=== PATIENT | female | born 1970 | race Caucasian/White ===

== ENCOUNTER 2018-09-17 11:39 | Inpatient (IN) ==
[~2018-09-17 11:39] MED LIST: cefOXitin 1,000 MG, Sodium Chloride IRRigation 1,000 ML IR ONE
[2018-09-17] MEDS ORDERED: Albuterol 2.5 MG/3 ML NEBULIZER IH ONE (12:18)
[2018-09-17] MEDS ORDERED: cefOXitin 2,000 MG in Water for inj. (sterile) 20 ML 20 ML IVP ONE (12:18)
[2018-09-17] MEDS ORDERED: Acetaminophen IV 1,000 MG/100 ML INFUS..BTL IVPB ONE (12:19)
[2018-09-17] MEDS ORDERED: Famotidine 20 MG/2 ML VIAL IVP ONE (12:19)
[2018-09-17] MEDS ORDERED: *HR* Heparin 5,000 UNIT/ML VIAL SQ ONE (12:20)
[2018-09-17] MEDS ORDERED: Ringers Solution, Lactated 1,000 ML IVC SCH (12:30)
[2018-09-17] MEDS ORDERED: *HR* Midazolam HCl 2 MG/2 ML VIAL ONE (12:54)
[2018-09-17] MEDS ORDERED: *HR* FentaNYL (PF) 100 MCG/2 ML VIAL ONE ×7 (12:54→20:09)
[2018-09-17] MEDS ORDERED: Lidocaine -MPF 2% 2 ML VIAL ONE (12:56)
[2018-09-17] MEDS ORDERED: *HR* Rocuronium Bromide 50 MG/5 ML VIAL ONE ×3 (12:56→18:38)
[2018-09-17] MEDS ORDERED: *HR* Propofol 200 MG/20 ML VIAL IVP ONE (12:57)
--- NOTE | 2018-09-17 13:07 | Anesthesia Evaluation PreOp ---
Date of Encounter: 09/17/18 Time of Encounter: 13:04 - Past History Planned Operation: abdominal perineal resection Cardiac History: HTN Pulmonary History: Former smoker (quit 2007), DELIA Dx (nsire of CPAP setting) PELLETIZER History: Other (anxiety depression) Other Medical History: Thyroid (hypo), GERD, Other (rectal and sigmoid carcinoma, obesity BMI 52) Anesthesia History: No Prior Anesthetic Complications, Past Anesthesia (c section, left knee scope, right shoulder RCR) : No Alcohol Use: none Drug use: none Medications and Allergies OxyCODONE Immed Rel [Roxicodone 10 MG] 20 - 30 mg PO Q3H PRN 10 Days #240 tab 09/14/18 [Rx] rOPINIRole [Requip] 1 mg PO HS 09/17/18 [History] Allergy/AdvReac Type Severity Reaction Status Date / Time morphine Allergy Mild Itching Verified 06/06/18 09:56 Erythromycin Base AdvReac Cramping Verified 06/06/18 09:04 of the Muscles Sulfa (Sulfonamide AdvReac Cramping Verified 06/06/18 09:04 Antibiotics) of the Muscles - Meds/Allergy Pre-op Review Medications Reviewed: Yes Allergies Reviewed: Yes Beta Blockers on Current Med List: No Anesthesia Results - Labs Laboratory Tests 08/22/18 08/22/18 09/11/18 09:24 09:24 14:24 WBC 6.3 Hgb 10.8 L Hct 34.8 L Plt Count 247 PT 11.6 INR 1.0 APTT 35.0 Sodium 141 Potassium 4.0 Chloride 104 Carbon Dioxide 29 BUN 10 Creatinine 0.84 - Imaging EKG: report reviewed (SINUS RHYTHM MODERATE INTRAVENTRICULAR CONDUCTION DELAY), image reviewed Anesthesia Exam Vital Signs/O2 Sat/Glucose, Most Recent Temp Pulse Resp BP Pulse Ox 98.5 F 81 18 143/85 94 09/17/18 12:27 09/17/18 12:27 09/17/18 12:27 09/17/18 12:27 09/17/18 12:27 Height: 1.63 m Weight: 138 kg NPO (# of Hours): > 8 hr - HEENT Pupil (Motor): Pupils equal Mallampati: II Teeth: Missing Oral Opening: Greater than 3 - PELLETIZER LOC: Oriented PELLETIZER Motor: Normal RUE, Normal LUE, Normal RLE, Normal LLE, Normal Face PELLETIZER Sensory: Normal: RUE, LUE, RLE, LLE, Face - Cardiac Rhythm: Regular Murmur: None - Pulmonary Breath Sounds: bilateral Clear Respiratory Effort: Symmetrical Anesthesia Assess/Plan ASA Score: 3 Level of consciousness: Cooperative, Oriented Anesthetic Plan: General, Epidural Monitoring Plan: Standard Monitors Recovery Plan: PACU
[2018-09-17] MEDS ORDERED: SODIUM CHLORIDE IR ONE (13:15)
[2018-09-17] MEDS ORDERED: SODIUM BICARBONATE IR ONE (13:15)
[2018-09-17] MEDS ORDERED: LIDOCAINE IR ONE (13:15)
[2018-09-17] MEDS ORDERED: Neostigmine Methylsulfate 3 MG/3 ML SYRINGE ONE (13:18)
[2018-09-17] MEDS ORDERED: Ketorolac 30 MG/ML VIAL ONE ×2 (13:19→17:26)
--- NOTE | 2018-09-17 13:39 | History & Physical Report ---
Date of Encounter: 09/17/18 Time of Encounter: 13:38 24 Hour HP Update - Instructions Instructions: If the History and Physical is less than 30 days old and was completed prior to A.M. admission and or procedure and has NOT been updated on calendar day of procedure please complete this update prior to performing procedure. - Update Patient reports changes in Medical Condition: No Changes in examination, assessment, or condition: No Changes in Medication: No Surgery Remains Indicated: Yes Consent for Planned Operative Procedure(s) Verified: Yes - Pre-Operative Checklist Prophylactic Antibiotic Ordered: Yes Home Medications Include Beta Henrique: No Is VTE Prophylaxis Indicated?: Yes
[2018-09-17] MEDS ORDERED: Povidone-Iodine 28.4 GM TUBE TP ONE (13:41)
[2018-09-17] MEDS ORDERED: Bupivacaine-MPF 0.25% 10 ML VIAL ONE ×2 (13:44→15:10)
[2018-09-17] MEDS ORDERED: Lidocaine/EPI 1:200k 1% PF 10 ML VIAL ONE (13:44)
[2018-09-17] MEDS ORDERED: KETAMINE HCL 50 MG/ML SYRINGE IV ONE ×2 (13:47→16:40)
[2018-09-17] MEDS ORDERED: Ondansetron 4 MG/2 ML VIAL IVP PRN ×2 (14:17→21:47)
[2018-09-17] MEDS ORDERED: 0.9 % Sodium Chloride 500 ML IVC PRN (14:17)
[2018-09-17] MEDS ORDERED: Naloxone 0.4 MG/ML INJ IVP PRN (14:17)
[2018-09-17] MEDS ORDERED: *HR* HYDROmorphone (PF) 1 MG/ML SYRINGE IVP PRN (14:17)
[2018-09-17] MEDS ORDERED: Bupivacaine-MPF 0.5% 25 ML, FentaNYL (PF) 250 MCG in 0.9 % Sodium Chloride 80 ML EP SCH (14:30)
[2018-09-17] MEDS ORDERED: Esmolol 100 MG/10 ML VIAL IVP ONE (15:07)
--- NOTE | 2018-09-17 15:59 | Anesthesia Procedures ---
Date of Encounter: 09/17/18 Time of Encounter: 14:05 Procedures: Anesthesia - Epidural/Spinal Patient ID/Chart reviewed: Yes Patient examined: Yes Consent Obtained: Yes Supplemental Oxygen: Nasal Cannula Supplemental Oxygen Rate (L/min): 2 Sedation: Versed (mg): 2 Sedation: Fentanyl (mcg): 150 Site Prep: Aseptic Technique, Sterile prep and drape, 0.5% Chlorhexidine/Alcohol Patient position: upright Local Anesthetic: Lidocaine 1% Amount of Local Anesthetic used: 2 Touhy Needle Gauge: 18 Touhy Needle Depth (cm): 5 Catheter Depth at Skin (cm): 13 Test Dose (1.5% Lido + Epi): Volume given (mls): 4 (1% lido with epi 1:200,000) Test Dose Result: Negative (Vital signs unchanged, remain stable) Loading Dose: 0.25% Marcaine (mls): 10 Loading Dose: Fentanyl (mcg): 50 Loading Dose Administered: Thru Catheter Catheter Secured in Place: Tegaderm, Tape Interspace Used: Other (T8-T9) Loss of Resistance (HALEIGH): Yes Blood: No CSF: No Paresthesia: No Vitals + FHT's: Vital Signs/O2 Sat/Glucose, Most Recent Temp Pulse Resp BP Pulse Ox 98.5 F 90 18 143/95 95 09/17/18 12:27 09/17/18 13:54 09/17/18 13:54 09/17/18 13:54 09/17/18 13:54
[2018-09-17] MEDS: Epidural Premix (fent/bupiv) 110 ML EP SCH ×2 (16:30→19:55)
[2018-09-17] MEDS ORDERED: *HR* Magnesium Sulfate 1 GM/2 ML VIAL ONE (16:34)
[2018-09-17] MEDS ORDERED: SUGAMMADEX SODIUM 500 MG/5 ML VIAL IV ONE (16:40)
[2018-09-17] MEDS ORDERED: Albumin Human 5% 25.0 GM/500 ML VIAL ONE (17:17)
[2018-09-17] MEDS ORDERED: Ondansetron 4 MG/2 ML VIAL ONE (17:26)
[2018-09-17] MEDS ORDERED: Acetaminophen IV 1,000 MG/100 ML INFUS..BTL IVPB SCH (18:00)
[2018-09-17] MEDS ORDERED: Ketorolac 15 MG/ML VIAL IVP SCH (18:00)
[2018-09-17] MEDS ORDERED: CefOXitin 2,000 MG VIAL ONE (18:08)
[2018-09-17] MEDS ORDERED: *HR* PHENYLEPHRINE 1,000 MCG/10 ML SYRINGE IVP ONE (18:34)
--- NOTE | 2018-09-17 18:44 | Operative Note ---
Date of procedure: 09/17/18 Pre-op diagnosis: Rectal cancer Post-op diagnosis: same Procedure: Abdominal perineal resection Anesthesia: GETA Surgeon: Arun Lemus Co-Surgeon: Kathie Will Was there an vet assistant present: Yes Authorization Nurse: Lisette Newton Estimated blood loss (cc): 250 Specimen: Abdominal perineal resection including anus and total mesorectal resection Condition: stable Disposition: PACU Procedure in Detail: After informed consent the patients taking major operative suite placed supine position given adequate general endotracheal anesthesia. Placed in lithotomy position. Abdomen and perineum prepped and draped in sterile fashion utilizing ChloraPrep on the abdomen and Betadine on the perineum. Dr. Will and Dr. Lemus were co-surgeons. Both surgeons were present throughout the entire procedure. Midline incision was made and the abdomen was entered. The Bookwalter retractor was placed in the small bowel was retracted out of the pelvis. The procedure was made very difficult by the body mass index of 52.. The sigmoid colon was completely mobilized. The sigmoid descending colon junction was divided with SHASHANK. Peritoneum on the right and left side of the pelvis was divided. The vascular pedicle for the rectum was divided. Once this was done slow meticulous dissection of the middle and inferior hemorrhoidals was carried out keeping the dissection at the lateral sidewalls and the hollow of the sacrum. The peritoneum between the rectum in the vagina was divided. Careful dissection posterior to the muscular wall of the of the vagina was made. This allowed careful dissection circumferentially all the way to the levator muscles. Dissection was complicated by morbid obesity. Once complete mobilization of the rectal segment was made with dissection from the pelvic sidewalls all the way to alleviate years attention was then turned to the perineal dissection. An ellipse of tissue from just posterior to the vagina to just anterior of the coccyx was divided. The skin and superficial musculature was divided. Anterior pelvic diaphragm was divided. Careful dissection was carried out on the right and left sides and posterior of the rectum. The puborectalis muscle was divided anteriorly and posteriorly and the coccyx was identified. The tissues anterior to the coccyx as it extended onto the sacrum was divided. This helped isolate the rectum on the posterior vagina wall. There was palpable tumor remaining in this area. Very careful dissection was maintained along the vagina in order to maintain resection integrity. This meant that the vagina was entered posteriorl y and an extended posterior vaginal wall was taken with the specimen. Once the dissection was completed the specimen was delivered through the perineum. Hemostasis was gained with hemostatic ligatures and electrocautery. Posterior vaginal wall was closed with interrupted Vicryl. A Arvind drain was placed in the pelvis. The pelvic diaphragm musculature was reapproximated when possible. Central portion of the resection was not able to be reapproximated. Subcutaneous tissue and ischiorectal fossa tissues were closed in multiple layers all the way to the skin. The drain was secured with silk. Dr. Will then created the colostomy and irrigated the abdomen with copious amounts of antibiotic containing solution. The midline was closed with looped 0 PDS and the skin with skin clips. The patient tolerated procedure very well. Blood loss estimated at 250 mL
[2018-09-17] MEDS: *HR* FentaNYL (PF) 100 MCG/2 ML VIAL IVP PRN ×10 (20:11→20:56)
--- NOTE | 2018-09-17 20:17 | Operative Note ---
Date of procedure: 09/17/18 Pre-op diagnosis: Rectal cancer Post-op diagnosis: same Procedure: Abdominoperoneal resection, end colostomy, takedown splenic flexure, repair posterior vaginal wall Complications: none immediate Anesthesia: JOSEPH Surgeon: Kathie Will Co-Surgeon: Arun Lemus Was there an safety assistant present: Yes Renal Nurse: Lisette Newton Estimated blood loss (cc): 600 Urine output (cc): 150 Specimen: anus/rectum/sigmoid colon Condition: stable Disposition: PACU Procedure in Detail: Patient was brought into the operating suite and placed supine on the operating table. Sign in was performed and everyone was in agreement. Anesthesia was induced and patient was endotracheally intubated by anesthesia without incident. Her legs were placed in yellowfin stirrups. Holden catheter was placed by the circulating nurse. NG tube was placed by the anesthesia provider. The perineum as well as the abdomen were prepped and draped in the usual sterile fashion. Timeout was performed again everyone was in agreement. Dr. Lemus was the co- surgeon for the majority of the procedure due to the complex and difficult nature of not only the abdominal surgical component but the perineum component as well which requires 2 surgeons, compounded by the fact the patients BMI is 52. Midline incision through the skin into the subcutaneous tissue was made several centimeters below the xiphoid around the right lateral aspect of the umbilicus down to the suprapubic area with a 10 blade. We dissected through the subcutaneous tissue to the anterior abdominal wall fascia with the Bovie. The fascia was split with the Bovie Reena's are placed on either side of the fascia for retraction and the abdomen was entered with the Bovie. Bookwalter was placed for exposure and retraction pepper. The small bowel was packed up into the right upper quadrant with a wet towel and the malleable retractor. The sigmoid colon was located in taken off the left lateral abdominal wall at the white line of Toldt with the Bovie and gentle blunt dissection. The left ureter was located and kept out of harm's way throughout the remainder of the procedure. Once the sigmoid was completely mobilized off the abdominal wall area of the mesentery beneath the colon was chosen for transection was opened up with the Bovie and the colon was transected the descending colon/sigmoid junction with a linear SHASHANK-75 stapler blue load. The mesentery along the right lateral and left lateral peritoneum was scored with the Bovie. The sigmoid mesentery was taken down and a proximal to distal direction towards the rectum with the impact LigaSure, coming across the inferior mesenteric artery and vein. Continued dissection with the impact LigaSure along the posterior aspect of the sacrum was carefully performed. A total knee so mesorectal dissection was carried out first posteriorly then along each lateral aspect of the rectum with gentle blunt dissection and the impact ligasure ligating the superior rectal artery and the middle rectal arteries. Once dissection was carried down to levators an opening in the peritoneum between the rectum and the cervix was done with the bovie and dissection with the bovie and gentle blunt dissection between the posterior vagina and anterior rectal wall was done until it became too difficult. Attention was then turned to the perineal component of the case. The anus was sewn closed with a 2-0 prolene running locked stitch. An elliptical incision through the skin into the subcutaneous tissue around the anus was done with a 15 blade, first starting 1-1/2-2 cm above the anterior anus proceeding posteriorly to the tip of the coccyx. Dissection through the subcutaneous fat was done circumferentially around the anus to the levators, carefully ligating the inferior hemorrhoidal arteries with the Bovie. The dissection was carried through through the levators as well as the anterior aspect of the puborectalis muscle with the Bovie. Continued dissection and the mesorectal plane was carried through the fat with the Bovie until the perineal dissection met with the pelvic dissection bilaterally and posteriorly. The anterior dissection of the mid to distal rectum was complicated by previous radiation a fact where the anterior aspect of the rectum was densely adherent to the posterior vaginal wall. Due to the dense nature of the tissue in this area and concern for residual tumor that had potentially gone through the anterior rectal wall to the vagina approximately a centimeter and a half of posterior vaginal wall was removed with the specimen. This completely freed up the anus, rectum, sigmoid which was then pulled out the perineal dissection. The posterior wall of the vagina was closed with 2-0 Vicryl [id number] stitches. A 19-Ukrainian Arvind drain was placed into the pelvis coming out of the right perineum skin and was secured to the skin with a 2-0 silk stitch. The pelvic fat as well as pelvic diaphragm musculature was reapproximated with 2-0 Vicryl interrupted stitches. The subcutaneous tissue was reapproximated with 2-0 Vicryl interrupted stitches and the skin was closed with mary. Dr. Lemus then left the operating theater. The abdomen was copiously irrigated with sterile saline. The descending colon was taken off the left abdominal wall the white line of Toldt with the Bovie proceeding proximally freeing the splenic flexure of the colon. There was adequate mobilization of the distal transverse and descending colon to create a colostomy. The small bowel was returned to the abdominal cavity and the omentum was draped down around the small bowel and distal end of the omentum was placed into the pelvis behind the vagina in an attempt to exclude the small bowel from the pelvis. Reena's are placed on the left side of the abdominal wall fascia using a 15 blade a circular incision through the skin into the subcutaneous tissue approximated 2 cm in size was made overlying the proximal lateral rectus muscle. Dissection through the subcutaneous fat to the anterior abdominal wall rectus fascia was made with a 15 blade. A cruciate incision was made through the anterior rectus fascia with the Bovie. Lisa was used to split the rectus muscle in the direction of fibers and the posterior rectus fascia was opened bluntly. The opening in the rectus fascia accommodated 2 fingers breast. The distal descending colon was pulled up through this opening in the rectus muscle. [place]'s are placed on either side of the fascia for retraction and the abdominal wall was closed with 2 separate #1 non-looped PDS running stitches meeting in the middle. The subcutaneous tissue was copiously irrigated with sterile saline. The subcutaneous tissue was reapproximated with 3-0 Vicryl interrupted stitches and the skin was closed with mary. The stapled off end of the descending colon was transected with curved heavy Metzenbaum scissors and the cut end of the colon bled appropriately. The colostomy was then fashioned with full thickness colon wall interrupted stitches securing the colon to the subcutaneous tissue circumferentially. A large colostomy appliance was placed over the newly created colostomy. 4 x 4 gauze and Medipore tape were applied to the midline incision. 4 x 4 gauze and Medipore tape were applied to the perineum incision as well as a drain sponge to the Arvind drain. All lap and instrument counts were correct at the end of the case. The patient tolerated the procedure well. She was awoken in the operating suite and extubated by anesthesia without incident. The OG tube was removed as well. The Holden catheter remained with the patient. She was taken to PACU in stable condition.
[2018-09-17] MEDS: *HR* HYDROmorphone (PF) 1 MG/ML SYRINGE IVP PRN ×4 (21:01→21:16)
--- NOTE | 2018-09-17 21:19 | Anesthesia Evaluation Post Op ---
Date of Encounter: 09/17/18 Time of Encounter: 21:18 - Vital Signs Vital Signs: Last Vital Signs Temp 97.6 F 09/17/18 20:55 Pulse 69 09/17/18 21:15 Resp 14 09/17/18 21:15 BP 115/67 09/17/18 21:15 Pulse Ox 99 09/17/18 21:15 - Lungs Lungs: Clear Ascult./Percussion - Airway Airway: Non-obstructed - Cardiovascular Regular Rate - Mental Status Mental Status: Alert & Oriented, Answers Appropriately - Pain Pain Scale: 8 - Nausea Vomiting Nausea Vomiting: Not Present - Hydration Hydration: NPO, Holden catheter - Discharge PostOp Status: Transfer Patient to floor
[2018-09-17] MEDS ORDERED: *HR* Promethazine 25 MG/ML VIAL IVP PRN (21:47)
[2018-09-18] MEDS: 0.9 % Sodium Chloride 1,000 ML IVC SCH ×3 (01:06→15:43)
[2018-09-18] MEDS: Acetaminophen IV 1,000 MG/100 ML INFUS..BTL IVPB SCH ×4 (01:07→18:03)
[2018-09-18] MEDS: Piperacillin/Tazobactam 3.375 GM in 0.9 % Sodium Chloride Mini Bag 100 ML IVPB SCH ×4 (01:35→23:56)
[2018-09-18] MEDS: rOPINIRole 1 MG TABLET PO SCH ×2 (03:07→21:20)
[2018-09-18] MEDS: *HR* HYDROmorphone 20 MG/20 ML PCA IVC PRN ×2 (04:40→21:46)
[2018-09-18] MEDS: *HR* Heparin 5,000 UNIT/ML VIAL SQ SCH ×2 (05:33→18:03)
[2018-09-18 06:40] LABS: Basophils % 0.1 %; Eosinophils % 0.1 %; Hematocrit 26.9 % (35.3-44.9); Hemoglobin 8.3 g/dL (11.5-15.4); Immature Granulocytes % 0.3 % (0-4); Lymphocytes # 0.4 K/mcL (0.6-4.6); Lymphocytes % 4.8 %; Mean Corpuscular HGB Conc 30.9 g/dL (31.6-35.5); Mean Corpuscular Hemoglobin 26.2 pg (28.0-33.3); Mean Corpuscular Volume 84.9 fL (83.0-100.0); Mean Platelet Volume 9.9 fL (9.4-12.4); Monocytes # 0.4 K/mcL (0.0-1.3); Monocytes % 4.8 %; Neutrophils # 7.1 K/mcL (1.6-8.9); Platelet Count 230 K/mcL (140-400); Red Blood Count 3.17 M/mcL (3.82-4.97); Red Cell Distribution Width 15.9 % (11.5-14.5); Segmented Neutrophils % 89.9 %
[2018-09-18 06:58] LABS: BUN/Creatinine Ratio 14 (6-26); Blood Urea Nitrogen 12 mg/dL (6-20); Carbon Dioxide 25 mEq/L (23-29); Chloride 107 mEq/L (98-107); Glucose 151 mg/dL (70-105); Magnesium 2.1 mg/dL (1.6-2.6); Osmolality,Calculated 293 (280-300); Phosphorous 4.4 mg/dL (2.7-4.5); Potassium 4.2 mEq/L (3.5-5.1); Sodium 140 mEq/L (136-145); eGFR For Non-African Americans > 60 (> 60)
[2018-09-18] MEDS: Epidural Premix (fent/bupiv) 110 ML EP SCH (07:48)
[2018-09-18] MEDS: Pantoprazole 40 MG VIAL IVP SCH (09:09)
--- NOTE | 2018-09-18 11:37 | General Surgery Progress Note ---
<Too Lopez - Last Filed: 09/18/18 17:55> Date of Encounter: 09/18/18 - Assessment and Plan (1) Rectal cancer Current Visit: Yes Status: Acute Patient is POD 1 APR with takedown of splenic flexure and colostomy WBC 7.9 Hgb 8.3 Afebrile overnight Urine output of 100 today - per nurse, there was a leak around the reyes cath. Catheter was flushed and patient was cleaned. 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 On zosyn Started clears today Daily wound care Zofran for nausea Protonix for GI prophylaxis Patient up out of bed to chair, consulted PT/OT Objective Vital Signs - Last 8 Hours Temp Pulse Resp BP Pulse Ox 09/18/18 10:13 98.2 F 93 19 110/72 99 09/18/18 05:20 98.9 F 102 13 132/70 98 Intake and Output 09/17/18 09/18/18 09/18/18 23:59 07:59 15:59 Intake Total 300 / 300 950 / 950 Output Total 750 / 750 200 / 200 35 / 35 Balance -750 / -750 100 / 100 915 / 915 Intake: IV Fluids 300 / 300 950 / 950 0.9 % Sodium Chloride 1,000 ML 950 / 950 @ 135 mls/hr IVC .Q7H25M ISSA Rx #:[id number] Ofirmev 1,000 mg/100 ml 1,000 200 / 200 mg In 100 ml @ 400 mls/hr IVPB Q6HR ISSA Rx#:[id number] Zosyn 3.375 GM In 0.9 % Sodium 100 / 100 Chloride (Mini-Bag +) 100 ML @ 25 mls/hr IVPB Q8HR ISSA Rx#: [id number] Oral 0 / 0 0 / 0 Output: Estimated Blood Loss 600 / 600 Urine Amount (Catheter) 150 / 150 Catheter 100 / 100 0 / 0 Wound Drainage 100 / 100 35 / 35 cordell drain 100 / 100 35 / 35 Other: Meal Breakfast NPO Percent of Meal Consumed 0% Weight 142.9 kg Blood Glucose* 174 Patient Weight 09/18/18 23:59 Weight 142.9 kg - Labs 09/18/18 06:18 11/06/18 06:18 Diabetes panel 09/18/18 Range/Units 06:18 Sodium 140 (136-145) mEq/L Potassium 4.2 (3.5-5.1) mEq/L Chloride 107 (98-107) mEq/L Carbon Dioxide 25 (23-29) mEq/L BUN 12 (6-20) mg/dL Creatinine 0.88 (0.60-1.20) mg/dL Glucose 151 H (70-105) mg/dL Calcium 8.0 L (8.6-10.3) mg/dL Calcium panel 09/18/18 Range/Units 06:18 Calcium 8.0 L (8.6-10.3) mg/dL Phosphorus 4.4 (2.7-4.5) mg/dL Pituitary panel 09/18/18 Range/Units 06:18 Sodium 140 (136-145) mEq/L Potassium 4.2 (3.5-5.1) mEq/L Chloride 107 (98-107) mEq/L Carbon Dioxide 25 (23-29) mEq/L BUN 12 (6-20) mg/dL Creatinine 0.88 (0.60-1.20) mg/dL Glucose 151 H (70-105) mg/dL Calcium 8.0 L (8.6-10.3) mg/dL Adrenal panel 09/18/18 Range/Units 06:18 Sodium 140 (136-145) mEq/L Potassium 4.2 (3.5-5.1) mEq/L Chloride 107 (98-107) mEq/L Carbon Dioxide 25 (23-29) mEq/L BUN 12 (6-20) mg/dL Creatinine 0.88 (0.60-1.20) mg/dL Glucose 151 H (70-105) mg/dL Calcium 8.0 L (8.6-10.3) mg/dL Consult Discharge Plan - Plan Referrals: Kathie Will MD [Partnered Physician] - 10/03/18 2:50 pm Deshaun Rivas MD [Primary Care Provider] - <Kathie Will - Last Filed: 09/20/18 14:33> Date of Encounter: 09/18/18 Time of Encounter: 16:34 - Assessment and Plan (1) Rectal cancer Current Visit: Yes Status: Acute pod 1 APR, takedown splenic flexure, end colostomy afebrile, vitals stable pain well 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 OOB to chair BID PT/OT gi/dvt prophylaxis continue reyes for several days due to pelvic dissection daily wound care cordell drain care daily Subjective Patient reports: still having pain, tolerating liquids well (only had jello), flatus, bowel movement (soft and liquid stool in ostomy appliance), afebrile Narrative: tolerated ice chips, no nausea, pain well controlled not OOB yet Objective Vital Signs - Last 8 Hours Temp Pulse Resp BP Pulse Ox 09/18/18 15:05 98.4 F 101 15 105/71 93 09/18/18 10:13 98.2 F 93 19 110/72 99 Intake and Output 09/18/18 09/18/18 09/18/18 07:59 15:59 23:59 Intake Total 300 / 300 1999 / 2000 Output Total 200 / 200 35 / 35 Balance 100 / 100 1964 / 1964 Intake: IV Fluids 300 / 300 1999 / 1999 0.9 % Sodium Chloride 1,000 ML 1900 / 1900 @ 135 mls/hr IVC .Q7H25M ISSA Rx #:[id number] Ofirmev 1,000 mg/100 ml 1,000 200 / 200 mg In 100 ml @ 400 mls/hr IVPB Q6HR ISSA Rx#:[id number] Zosyn 3.375 GM In 0.9 % Sodium 100 / 100 100 / 100 Chloride (Mini-Bag +) 100 ML @ 25 mls/hr IVPB Q8HR ISSA Rx#: [id number] Oral 0 / 0 0 / 0 Output: Catheter 100 / 100 0 / 0 Wound Drainage 100 / 100 35 / 35 cordell drain 100 / 100 35 / 35 Other: Meal Breakfast NPO Percent of Meal Consumed 0% Weight 142.9 kg Blood Glucose* 174 137 Patient Weight 09/18/18 23:59 Weight 142.9 kg - General physical appearance well developed, well nourished, no distress, obese - Eyes PERRL, normal ocular movement - ENT normal mucosa, normocephalic - Neck Neck exam: trachea midline - Respiratory normal expansion, normal respiratory effort - Cardiovascular Cardiovascular exam: Present: RRR - Abdomen Abdomen: Present: soft, tender. Absent: bowel sounds present Additional Comments: colostomy pink and viable, minimal edema, stool present perineum wound intact, tender, no erythema or drainage cordell drain with serous drainage - Incision Incision: Present: clean and dry, intact - Integumentary no rash - Neurologic CN 2-12 grossly intact - Musculoskeletal normal posture - Psychiatric oriented to time, oriented to person, oriented to place, speech is normal, memory intact - Labs 09/20/18 04:47 09/20/18 04:47 Diabetes panel 09/18/18 Range/Units 06:18 Sodium 140 (136-145) mEq/L Potassium 4.2 (3.5-5.1) mEq/L Chloride 107 (98-107) mEq/L Carbon Dioxide 25 (23-29) mEq/L BUN 12 (6-20) mg/dL Creatinine 0.88 (0.60-1.20) mg/dL Glucose 151 H (70-105) mg/dL Calcium 8.0 L (8.6-10.3) mg/dL Calcium panel 09/18/18 Range/Units 06:18 Calcium 8.0 L (8.6-10.3) mg/dL Phosphorus 4.4 (2.7-4.5) mg/dL Pituitary panel 09/18/18 Range/Units 06:18 Sodium 140 (136-145) mEq/L Potassium 4.2 (3.5-5.1) mEq/L Chloride 107 (98-107) mEq/L Carbon Dioxide 25 (23-29) mEq/L BUN 12 (6-20) mg/dL Creatinine 0.88 (0.60-1.20) mg/dL Glucose 151 H (70-105) mg/dL Calcium 8.0 L (8.6-10.3) mg/dL Adrenal panel 09/18/18 Range/Units 06:18 Sodium 140 (136-145) mEq/L Potassium 4.2 (3.5-5.1) mEq/L Chloride 107 (98-107) mEq/L Carbon Dioxide 25 (23-29) mEq/L BUN 12 (6-20) mg/dL Creatinine 0.88 (0.60-1.20) mg/dL Glucose 151 H (70-105) mg/dL Calcium 8.0 L (8.6-10.3) mg/dL - Attending Attestation I examined this patient and my medical decision-making was reviewed with the Resident Physician. I agree with the documented findings, disposition and treatment plan as described except to the extent set forth below.
--- NOTE | 2018-09-18 18:23 | Anesthesia Progress Note ---
Date of Encounter: 09/18/18 Time of Encounter: 18:21 Anesthesia Note - Note Note: 09/18/18 18:21 Pt is pod 1 APR, takedown splenic flexure, end colostomy vitals: Vital Signs/O2 Sat, Most Current Temp Pulse Resp BP Pulse Ox 98.4 F 101 15 105/71 93 09/18/18 15:05 09/18/18 15:05 09/18/18 15:05 09/18/18 15:05 09/18/18 15:05 09/18/18 18:22 Pain is well controlled with current epidural rate. Pain score is 0 Continue epidural for post op analgesia Will continue to follow
[2018-09-18] MEDS: *HR* Metoprolol 5 MG/5 ML VIAL IVP PRN (18:43)
[2018-09-19] MEDS: Acetaminophen IV 1,000 MG/100 ML INFUS..BTL IVPB SCH ×4 (00:02→17:43)
[2018-09-19] MEDS: 0.9 % Sodium Chloride 1,000 ML IVC SCH ×4 (01:20→17:41)
[2018-09-19 04:15] LABS: Basophils % 0.1 %; Eosinophils # 0.2 K/mcL (0.0-0.6); Eosinophils % 1.6 %; Hematocrit 24.6 % (35.3-44.9); Hemoglobin 7.3 g/dL (11.5-15.4); Immature Granulocytes % 0.3 % (0-4); Lymphocytes # 0.6 K/mcL (0.6-4.6); Lymphocytes % 6.9 %; Mean Corpuscular HGB Conc 29.7 g/dL (31.6-35.5); Mean Corpuscular Volume 87.5 fL (83.0-100.0); Mean Platelet Volume 9.7 fL (9.4-12.4); Monocytes # 0.4 K/mcL (0.0-1.3); Monocytes % 4.1 %; Neutrophils # 8.1 K/mcL (1.6-8.9); Platelet Count 203 K/mcL (140-400); Red Blood Count 2.81 M/mcL (3.82-4.97); Red Cell Distribution Width 15.6 % (11.5-14.5)
[2018-09-19 04:33] LABS: BUN/Creatinine Ratio 14 (6-26); Blood Urea Nitrogen 11 mg/dL (6-20); Calcium 7.8 mg/dL (8.6-10.3); Carbon Dioxide 28 mEq/L (23-29); Chloride 108 mEq/L (98-107); Glucose 117 mg/dL (70-105); Osmolality,Calculated 290 (280-300); Potassium 4.1 mEq/L (3.5-5.1); Sodium 140 mEq/L (136-145); eGFR For Non-African Americans > 60 (> 60)
[2018-09-19] MEDS: Epidural Premix (fent/bupiv) 110 ML EP SCH ×2 (05:31→14:17)
--- NOTE | 2018-09-19 05:51 | Anesthesia Progress Note ---
Addendum entered and electronically signed by Saw Townsend CRNA 09/19/18 05:58: recheck with patient following bolus, patient sleeping, no snoring, awakens to voice states no pain now, still able to move legs at previous strength. current VSS, updated RN. 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 vss bag change aseptic tech, dressing intact. epidural bolus 6ml and increased rate to 10. will cont to follow. depending on Dr. Will plan we may need to change concentrations to allow patient to ambulate more. However, at this time d/t severe pain I felt it was best to get the patient more stable with pain control. RN aware of current changes. patient understanding with current plan and in agreement.
[2018-09-19] MEDS: *HR* Heparin 5,000 UNIT/ML VIAL SQ SCH ×2 (06:24→17:42)
[2018-09-19] MEDS: Pantoprazole 40 MG VIAL IVP SCH (09:24)
[2018-09-19] MEDS: Piperacillin/Tazobactam 3.375 GM in 0.9 % Sodium Chloride Mini Bag 100 ML IVPB SCH ×2 (09:24→17:42)
[2018-09-19 12:22] LABS: Hemoglobin 6.9 g/dL (11.5-15.4)
[2018-09-19] MEDS ORDERED: 0.9 % Sodium Chloride 250 ML ONE (13:59)
--- NOTE | 2018-09-19 14:15 | Anesthesia Progress Note ---
Date of Encounter: 09/19/18 Time of Encounter: 14:00 Anesthesia Note - Note Note: 09/19/18 14:00 patient sitting upright at bedside. States epidural seems to be providing relief. Patient does c/o of moderate pain in her lower abdomen and bilateral hips. epidural bolused with 4ml of mixture from pump. RN providing care to patient made aware. insertion site remains dry / intact, catheter appears normal. Reason for Cancellation: Not NPO
--- NOTE | 2018-09-19 17:01 | General Surgery Progress Note ---
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 She is resting well this morning. She is tolerating clears liquids well. She denies nausea, vomiting, CP, SOB, chills. Pain is well controlled. Objective Vital Signs - Last 8 Hours Temp Pulse Resp BP Pulse Ox 09/19/18 15:17 98.3 F 78 16 115/73 98 09/19/18 15:03 97.8 F 78 16 108/65 98 09/19/18 11:15 98.1 F 86 14 131/81 98 Intake and Output 09/19/18 09/19/18 09/19/18 07:59 15:59 23:59 Intake Total 1440 / 1440 950 / 950 Output Total 550 / 550 820 / 820 Balance 890 / 890 130 / 130 Intake: IV Fluids 1320 / 1320 950 / 950 0.9 % Sodium Chloride 1,000 ML 950 / 950 @ 135 mls/hr IVC .Q7H25M [facility] Rx #:[id number] Ofirmev 1,000 mg/100 ml 1,000 200 / 200 mg In 100 ml @ 400 mls/hr IVPB Q6HR [facility] Rx#:[id number] Zosyn 3.375 GM In 0.9 % Sodium 100 / 100 Chloride (Mini-Bag +) 100 ML @ 25 mls/hr IVPB Q8HR [facility] Rx#: [id number] Oral 120 / 120 Blood Product 0 / 0 Rbcs Leuko Poor As-3 Ph Unit 0 / 0 [id number] Output: Catheter 550 / 550 800 / 800 Wound Drainage 20 / 20 cordell drain 20 Other: # Bowel Movements 0 Weight 144.9 kg Patient Weight 09/19/18 23:59 Weight 144.9 kg - General physical appearance well developed, well nourished - Respiratory normal expansion, normal respiratory effort - Cardiovascular Cardiovascular exam: Present: RRR - Abdomen Abdomen: Present: bowel sounds present, soft, tender (appropriately over incision site) Additional Comments: Colostomy with non-swollen, pink mucosa and dark brown liquid in bag - Incision Incision: Present: clean and dry, intact - Rectum other (JOSE drain with 20 ml serosanguineous liquid in bulb, perineum wound clean + dry + intact) - Integumentary no rash - Psychiatric oriented to time, oriented to person, oriented to place - Labs 09/19/18 12:05 09/19/18 03:54 Diabetes panel 09/19/18 Range/Units 03:54 Sodium 140 (136-145) mEq/L Potassium 4.1 (3.5-5.1) mEq/L Chloride 108 H (98-107) mEq/L Carbon Dioxide 28 (23-29) mEq/L BUN 11 (6-20) mg/dL Creatinine 0.81 (0.60-1.20) mg/dL Glucose 117 H (70-105) mg/dL Calcium 7.8 L (8.6-10.3) mg/dL Calcium panel 09/19/18 Range/Units 03:54 Calcium 7.8 L (8.6-10.3) mg/dL Pituitary panel 09/19/18 Range/Units 03:54 Sodium 140 (136-145) mEq/L Potassium 4.1 (3.5-5.1) mEq/L Chloride 108 H (98-107) mEq/L Carbon Dioxide 28 (23-29) mEq/L BUN 11 (6-20) mg/dL Creatinine 0.81 (0.60-1.20) mg/dL Glucose 117 H (70-105) mg/dL Calcium 7.8 L (8.6-10.3) mg/dL Adrenal panel 09/19/18 Range/Units 03:54 Sodium 140 (136-145) mEq/L Potassium 4.1 (3.5-5.1) mEq/L Chloride 108 H (98-107) mEq/L Carbon Dioxide 28 (23-29) mEq/L BUN 11 (6-20) mg/dL Creatinine 0.81 (0.60-1.20) mg/dL Glucose 117 H (70-105) mg/dL Calcium 7.8 L (8.6-10.3) mg/dL Consult Discharge Plan - Plan Referrals: Kathie Will MD [Partnered Physician] - 10/03/18 2:50 pm Deshaun Rivas MD [Primary Care Provider] - <Kathie Will - Last Filed: 09/20/18 14:37> Date of Encounter: 09/19/18 Time of Encounter: 18:00 - Assessment and Plan (1) Rectal cancer Current Visit: Yes Status: Acute pod 2 apr advance to regular diet decrease ivfs good uop continue reyes pain controlled well wiht current regimen, plan epidural removal tomorrow not sure why but PT/OT is deferring visits with patient due to epidural, is not a contraindication continue antibiotics daily wound care (2) Anemia Current Visit: Yes Status: Acute chronic anemia, some blood loss component due to surgery, dilutional Qualifiers: Anemia type: other cause Other causes of anemia: other cause, not classified Qualified Code(s): D64.89 - Other specified anemias Subjective Patient reports: no new complaints, feels better, still having pain, pain is less, tolerating liquids well, flatus, bowel movement Objective Vital Signs - Last 8 Hours Temp Pulse Resp BP Pulse Ox 09/20/18 11:31 98.9 F 83 15 124/74 99 09/20/18 11:15 99 09/20/18 07:47 97.9 F 74 16 119/75 100 Intake and Output 09/19/18 09/20/18 09/20/18 23:59 07:59 15:59 Intake Total 1700 / 1700 400 / 400 60 / 60 Output Total 850 / 850 200 / 200 Balance 1700 / 1700 -450 / -450 -140 / -140 Intake: IV Fluids 1000 / 1000 400 / 400 0.9 % Sodium Chloride 1,000 ML 1000 / 1000 @ 135 mls/hr IVC .Q7H25M [facility] Rx #:[id number] Ofirmev 1,000 mg/100 ml 1,000 200 / 200 mg In 100 ml @ 400 mls/hr IVPB Q6HR [facility] Rx#:[id number] Zosyn 3.375 GM In 0.9 % Sodium 200 / 200 Chloride (Mini-Bag +) 100 ML @ 25 mls/hr IVPB Q8HR [facility] Rx#: [id number] Oral 0 / 0 0 / 0 60 / 60 Blood Product 700 / 700 Rbcs Leuko Poor As-3 Ph Unit 350 / 350 [id number] Rbcs Leuko Poor As-3 Ph Unit 350 / 350 [id number] Output: Urine 200 / 200 Catheter 850 / 850 Other: Meal Clears Breakfast Percent of Meal Consumed 0% 80% # Bowel Movements 0 Weight 144.1 kg Patient Weight 09/20/18 23:59 Weight 144.1 kg - General physical appearance well developed, well nourished, no distress, obese - Eyes PERRL, normal ocular movement - ENT normal mucosa, normocephalic - Neck Neck exam: trachea midline - Respiratory normal expansion, normal respiratory effort - Cardiovascular Cardiovascular exam: Present: RRR - Abdomen Abdomen: Present: bowel sounds present, soft, tender - Incision Incision: Present: clean and dry, intact - Rectum other - Integumentary no rash - Neurologic normal sensation - Musculoskeletal normal posture - Psychiatric oriented to time, oriented to person, oriented to place, memory intact - Labs 09/20/18 04:47 09/20/18 04:47 Diabetes panel 09/20/18 Range/Units 04:47 Sodium 142 (136-145) mEq/L Potassium 4.1 (3.5-5.1) mEq/L Chloride 109 H (98-107) mEq/L Carbon Dioxide 29 (23-29) mEq/L BUN 9 (6-20) mg/dL Creatinine 0.67 (0.60-1.20) mg/dL Glucose 102 (70-105) mg/dL Calcium 8.0 L (8.6-10.3) mg/dL Calcium panel 09/20/18 Range/Units 04:47 Calcium 8.0 L (8.6-10.3) mg/dL Pituitary panel 09/20/18 Range/Units 04:47 Sodium 142 (136-145) mEq/L Potassium 4.1 (3.5-5.1) mEq/L Chloride 109 H (98-107) mEq/L Carbon Dioxide 29 (23-29) mEq/L BUN 9 (6-20) mg/dL Creatinine 0.67 (0.60-1.20) mg/dL Glucose 102 (70-105) mg/dL Calcium 8.0 L (8.6-10.3) mg/dL Adrenal panel 09/20/18 Range/Units 04:47 Sodium 142 (136-145) mEq/L Potassium 4.1 (3.5-5.1) mEq/L Chloride 109 H (98-107) mEq/L Carbon Dioxide 29 (23-29) mEq/L BUN 9 (6-20) mg/dL Creatinine 0.67 (0.60-1.20) mg/dL Glucose 102 (70-105) mg/dL Calcium 8.0 L (8.6-10.3) mg/dL - Attending Attestation I examined this patient and my medical decision-making was reviewed with the Resident Physician. I agree with the documented findings, disposition and treatment plan as described except to the extent set forth below.
[2018-09-19] MEDS ORDERED: 0.9 % Sodium Chloride 1,000 ML IVC SCH (18:22)
[2018-09-19] MEDS: rOPINIRole 1 MG TABLET PO SCH (19:42)
[2018-09-19] MEDS: *HR* HYDROmorphone 20 MG/20 ML PCA IVC PRN (20:11)
--- NOTE | 2018-09-19 21:13 | Anesthesia Procedures ---
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
[2018-09-20] MEDS: Acetaminophen IV 1,000 MG/100 ML INFUS..BTL IVPB SCH ×3 (00:51→13:32)
[2018-09-20] MEDS: Piperacillin/Tazobactam 3.375 GM in 0.9 % Sodium Chloride Mini Bag 100 ML IVPB SCH ×3 (01:23→19:07)
[2018-09-20] MEDS: Epidural Premix (fent/bupiv) 110 ML EP SCH (02:45)
[2018-09-20 05:01] LABS: Basophils % 0.1 %; Eosinophils # 0.3 K/mcL (0.0-0.6); Eosinophils % 3.7 %; Hematocrit 24.4 % (35.3-44.9); Hemoglobin 7.7 g/dL (11.5-15.4); Immature Granulocytes % 0.4 % (0-4); Lymphocytes # 0.6 K/mcL (0.6-4.6); Lymphocytes % 8.2 %; Mean Corpuscular HGB Conc 31.6 g/dL (31.6-35.5); Mean Corpuscular Hemoglobin 27.2 pg (28.0-33.3); Mean Corpuscular Volume 86.2 fL (83.0-100.0); Mean Platelet Volume 9.2 fL (9.4-12.4); Monocytes # 0.3 K/mcL (0.0-1.3); Monocytes % 4.3 %; Neutrophils # 5.6 K/mcL (1.6-8.9); Platelet Count 182 K/mcL (140-400); Red Blood Count 2.83 M/mcL (3.82-4.97); Red Cell Distribution Width 15.4 % (11.5-14.5); Segmented Neutrophils % 83.3 %
[2018-09-20 05:20] LABS: BUN/Creatinine Ratio 13 (6-26); Blood Urea Nitrogen 9 mg/dL (6-20); Carbon Dioxide 29 mEq/L (23-29); Chloride 109 mEq/L (98-107); Glucose 102 mg/dL (70-105); Osmolality,Calculated 293 (280-300); Potassium 4.1 mEq/L (3.5-5.1); Sodium 142 mEq/L (136-145); eGFR For Non-African Americans > 60 (> 60)
[2018-09-20] MEDS: *HR* Heparin 5,000 UNIT/ML VIAL SQ SCH ×2 (05:29→19:09)
--- NOTE | 2018-09-20 10:27 | General Surgery Progress Note ---
<Lizzy Baires Reid - Last Filed: 09/20/18 10:20> Date of Encounter: 09/20/18 Time of Encounter: 10:21 - Assessment and Plan (1) Rectal cancer Current Visit: Yes Status: Acute POD # 3 (09/17/2018) abdominal perineal resection, takedown of splenic flexure, end colostomy creation (Dr. Will and Allan co-surgeons) Abdominal exam is as expected. she is having output in her colostomy. Stoma is pink and moist. Midline incision is c/d/i. She is afebrile and VSS. She stated she had just been up to the chair at bedside. Plan: continue supportive care and discomfort management continue regular diet discontinue epidural per anesthesia. Will add scheduled Toradol once completed. 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 Out of bed to chair at least TID. Do not consume trays in the bed. Ambulate with assistance per PT and OT recommendations DC planning per PT and OT recommendations continue IV antibiotics continue G.I. and DVT prophylaxis. Will consider increasing heparin to TID once epidural is discontinued (2) Morbid obesity with BMI of 50.0-59.9, adult Current Visit: Yes Status: Acute Will continue to monitor abdominal incision is currently clean, dry, and intact. No evidence of dehiscence. PT/OT are following (3) Chronic pain Current Visit: Yes Status: Chronic Continue current medications continue to monitor Qualifiers: Chronic pain type: chronic pain syndrome Qualified Code(s): G89.4 - Chronic pain syndrome (4) Restless leg syndrome, controlled Current Visit: Yes Status: Chronic Continue current medications (5) Anemia Current Visit: Yes Status: Acute Most likely acute on chronic anemia given a rectal cancer. Noted approximately 250 mL blood loss during operative procedure. Her vital signs are stable. Her hemoglobin is 7.7 and there is no evidence of acute bleed. Will continue to closely monitor Qualifiers: Anemia type: other cause Other causes of anemia: acute posthemorrhagic Qualified Code(s): D62 - Acute posthemorrhagic anemia Subjective Patient reports: no new complaints, still having pain, pain is less, tolerating a regular diet, voiding w/o difficulty (per reyes), flatus, bowel movement, afebrile Objective Vital Signs - Last 8 Hours Temp Pulse Resp BP Pulse Ox 09/20/18 07:47 97.9 F 74 16 119/75 100 09/20/18 04:44 97.7 F 74 14 113/69 99 Intake and Output 09/19/18 09/20/18 09/20/18 23:59 07:59 15:59 Intake Total 1700 / 1700 400 / 400 60 / 60 Output Total 850 / 850 Balance 1700 / 1700 -450 / -450 60 / 60 Intake: IV Fluids 1000 / 1000 400 / 400 0.9 % Sodium Chloride 1,000 ML 1000 / 1000 @ 135 mls/hr IVC .Q7H25M [facility] Rx #:[id number] Ofirmev 1,000 mg/100 ml 1,000 200 / 200 mg In 100 ml @ 400 mls/hr IVPB Q6HR [facility] Rx#:[id number] Zosyn 3.375 GM In 0.9 % Sodium 200 / 200 Chloride (Mini-Bag +) 100 ML @ 25 mls/hr IVPB Q8HR [facility] Rx#: [id number] Oral 0 / 0 0 / 0 60 / 60 Blood Product 700 / 700 Rbcs Leuko Poor As-3 Ph Unit 350 / 350 [id number] Rbcs Leuko Poor As-3 Ph Unit 350 / 350 [id number] Output: Catheter 850 / 850 Other: Meal Clears Breakfast Percent of Meal Consumed 0% 80% # Bowel Movements 0 Weight 144.1 kg Patient Weight 09/20/18 23:59 Weight 144.1 kg - General physical appearance no distress, moderate pain - ENT normal nares, normal mucosa - Neck Neck exam: trachea midline - Respiratory other (Decreased respiratory effort) - Abdomen Abdomen: Present: bowel sounds present, soft, tender (expected) - Integumentary no rash - Neurologic normal coordination, normal sensation - Musculoskeletal normal posture - Psychiatric oriented to time, oriented to person, oriented to place, speech is normal, memory intact - Labs 09/20/18 04:47 09/20/18 04:47 Diabetes panel 09/20/18 Range/Units 04:47 Sodium 142 (136-145) mEq/L Potassium 4.1 (3.5-5.1) mEq/L Chloride 109 H (98-107) mEq/L Carbon Dioxide 29 (23-29) mEq/L BUN 9 (6-20) mg/dL Creatinine 0.67 (0.60-1.20) mg/dL Glucose 102 (70-105) mg/dL Calcium 8.0 L (8.6-10.3) mg/dL Calcium panel 09/20/18 Range/Units 04:47 Calcium 8.0 L (8.6-10.3) mg/dL Pituitary panel 09/20/18 Range/Units 04:47 Sodium 142 (136-145) mEq/L Potassium 4.1 (3.5-5.1) mEq/L Chloride 109 H (98-107) mEq/L Carbon Dioxide 29 (23-29) mEq/L BUN 9 (6-20) mg/dL Creatinine 0.67 (0.60-1.20) mg/dL Glucose 102 (70-105) mg/dL Calcium 8.0 L (8.6-10.3) mg/dL Adrenal panel 09/20/18 Range/Units 04:47 Sodium 142 (136-145) mEq/L Potassium 4.1 (3.5-5.1) mEq/L Chloride 109 H (98-107) mEq/L Carbon Dioxide 29 (23-29) mEq/L BUN 9 (6-20) mg/dL Creatinine 0.67 (0.60-1.20) mg/dL Glucose 102 (70-105) mg/dL Calcium 8.0 L (8.6-10.3) mg/dL Consult Discharge Plan - Plan Referrals: Kathie Will MD [Partnered Physician] - 10/03/18 2:50 pm Deshaun Rivas MD [Primary Care Provider] - <Kathie Will - Last Filed: 09/20/18 14:42> Date of Encounter: 09/20/18 - Assessment and Plan (1) Rectal cancer Current Visit: Yes Status: Acute pod 3 APR continue regular diet abdominal and perineum wound care daily continue raine reyes monday dc'd epidural today 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 start po pain medication tomorrow added toradol today OOB to chair/ PT/OT consulted ostomy teaching (2) Anemia Current Visit: Yes Status: Acute Qualifiers: Anemia type: other cause Other causes of anemia: other cause, not classified Qualified Code(s): D64.89 - Other specified anemias Subjective Patient reports: no new complaints, still having pain, pain is less, tolerating a regular diet, flatus, bowel movement, afebrile Objective Vital Signs - Last 8 Hours Temp Pulse Resp BP Pulse Ox 09/20/18 11:31 98.9 F 83 15 124/74 99 09/20/18 11:15 99 09/20/18 07:47 97.9 F 74 16 119/75 100 Intake and Output 09/19/18 09/20/18 09/20/18 23:59 07:59 15:59 Intake Total 1700 / 1700 400 / 400 60 / 60 Output Total 850 / 850 200 / 200 Balance 1700 / 1700 -450 / -450 -140 / -140 Intake: IV Fluids 1000 / 1000 400 / 400 0.9 % Sodium Chloride 1,000 ML 1000 / 1000 @ 135 mls/hr IVC .Q7H25M [facility] Rx #:[id number] Ofirmev 1,000 mg/100 ml 1,000 200 / 200 mg In 100 ml @ 400 mls/hr IVPB Q6HR [facility] Rx#:[id number] Zosyn 3.375 GM In 0.9 % Sodium 200 / 200 Chloride (Mini-Bag +) 100 ML @ 25 mls/hr IVPB Q8HR [facility] Rx#: [id number] Oral 0 / 0 0 / 0 60 / 60 Blood Product 700 / 700 Rbcs Leuko Poor As-3 Ph Unit 350 / 350 [id number] Rbcs Leuko Poor As-3 Ph Unit 350 / 350 [id number] Output: Urine 200 / 200 Catheter 850 / 850 Other: Meal Clears Breakfast Percent of Meal Consumed 0% 80% # Bowel Movements 0 Weight 144.1 kg Patient Weight 09/20/18 23:59 Weight 144.1 kg - General physical appearance well developed, well nourished, no distress, moderate pain - Eyes normal ocular movement - ENT normal mucosa, normocephalic - Neck Neck exam: trachea midline - Respiratory normal expansion, normal respiratory effort - Cardiovascular Cardiovascular exam: Present: RRR - Abdomen Abdomen: Present: bowel sounds present, soft, tender. Absent: guarding, rebound Additional Comments: cordell drain with serous drainage - Incision Incision: Present: clean and dry, intact - Rectum other (perineum incision D/C/I) - Integumentary no rash - Neurologic normal sensation - Musculoskeletal normal posture - Psychiatric oriented to time, oriented to person, oriented to place, speech is normal, me agus intact - Labs 09/20/18 04:47 09/20/18 04:47 Diabetes panel 09/20/18 Range/Units 04:47 Sodium 142 (136-145) mEq/L Potassium 4.1 (3.5-5.1) mEq/L Chloride 109 H (98-107) mEq/L Carbon Dioxide 29 (23-29) mEq/L BUN 9 (6-20) mg/dL Creatinine 0.67 (0.60-1.20) mg/dL Glucose 102 (70-105) mg/dL Calcium 8.0 L (8.6-10.3) mg/dL Calcium panel 09/20/18 Range/Units 04:47 Calcium 8.0 L (8.6-10.3) mg/dL Pituitary panel 09/20/18 Range/Units 04:47 Sodium 142 (136-145) mEq/L Potassium 4.1 (3.5-5.1) mEq/L Chloride 109 H (98-107) mEq/L Carbon Dioxide 29 (23-29) mEq/L BUN 9 (6-20) mg/dL Creatinine 0.67 (0.60-1.20) mg/dL Glucose 102 (70-105) mg/dL Calcium 8.0 L (8.6-10.3) mg/dL Adrenal panel 09/20/18 Range/Units 04:47 Sodium 142 (136-145) mEq/L Potassium 4.1 (3.5-5.1) mEq/L Chloride 109 H (98-107) mEq/L Carbon Dioxide 29 (23-29) mEq/L BUN 9 (6-20) mg/dL Creatinine 0.67 (0.60-1.20) mg/dL Glucose 102 (70-105) mg/dL Calcium 8.0 L (8.6-10.3) mg/dL - Attending Attestation I have personally performed a face to face evaluation on this patient. I have reviewed and agree with the care plan. History and Exam by me shows:
[2018-09-20] MEDS: Pantoprazole 40 MG VIAL IVP SCH (11:07)
--- NOTE | 2018-09-20 11:18 | Anesthesia Progress Note ---
Date of Encounter: 09/20/18 Time of Encounter: 11:17 Anesthesia Note - Note Note: Called to patient bedside to remove epidural catheter that is "leaking" per patient & nursing staff. Catheter removed without difficulty and confirmed blue distal tip intact. Patient tolerated removal and VSS. Nursing staff to waste remaining epidural infusion 09/20/18 11:17
--- NOTE | 2018-09-20 11:46 | Anesthesia Progress Note ---
Date of Encounter: 09/20/18 Time of Encounter: 07:10 Anesthesia Note - Note Note: 09/20/18 11:43 patient's epidural evaluated this morning. patient states pain has been tolerable overnight. patient looks improved in appearance from the previous day. plan discussed with Dr Will to remove epidural later today. Reason for Cancellation: Not NPO
[2018-09-20] MEDS ORDERED: 0.9 % Sodium Chloride 1,000 ML IVC SCH (16:00)
[2018-09-20] MEDS: Ketorolac 15 MG/ML VIAL IVP SCH ×2 (19:07→20:35)
[2018-09-20] MEDS: rOPINIRole 1 MG TABLET PO SCH (19:41)
[2018-09-20] MEDS: *HR* OxyCODONE/APAP 7.5/325 TABLET PO PRN (19:41)
[2018-09-21] MEDS: Piperacillin/Tazobactam 3.375 GM in 0.9 % Sodium Chloride Mini Bag 100 ML IVPB SCH ×4 (00:12→23:34)
[2018-09-21] MEDS: Ketorolac 15 MG/ML VIAL IVP SCH ×5 (00:12→23:29)
[2018-09-21] MEDS: *HR* OxyCODONE/APAP 7.5/325 TABLET PO PRN ×4 (03:48→19:50)
[2018-09-21] MEDS: *HR* Heparin 5,000 UNIT/ML VIAL SQ SCH ×2 (05:09→17:11)
[2018-09-21 05:21] LABS: Basophils % 0.2 %; Eosinophils # 0.2 K/mcL (0.0-0.6); Eosinophils % 4.1 %; Hematocrit 26.3 % (35.3-44.9); Hemoglobin 8.2 g/dL (11.5-15.4); Immature Granulocytes % 0.4 % (0-4); Lymphocytes # 0.5 K/mcL (0.6-4.6); Lymphocytes % 8.8 %; Mean Corpuscular HGB Conc 31.2 g/dL (31.6-35.5); Mean Corpuscular Hemoglobin 26.5 pg (28.0-33.3); Mean Corpuscular Volume 85.1 fL (83.0-100.0); Mean Platelet Volume 9.3 fL (9.4-12.4); Monocytes # 0.2 K/mcL (0.0-1.3); Neutrophils # 4.6 K/mcL (1.6-8.9); Platelet Count 219 K/mcL (140-400); Red Blood Count 3.09 M/mcL (3.82-4.97); Red Cell Distribution Width 15.2 % (11.5-14.5); Segmented Neutrophils % 82.5 %
[2018-09-21 05:38] LABS: BUN/Creatinine Ratio 13 (6-26); Blood Urea Nitrogen 8 mg/dL (6-20); Calcium 8.3 mg/dL (8.6-10.3); Carbon Dioxide 27 mEq/L (23-29); Chloride 108 mEq/L (98-107); Glucose 112 mg/dL (70-105); Osmolality,Calculated 293 (280-300); Potassium 3.7 mEq/L (3.5-5.1); Sodium 142 mEq/L (136-145); eGFR For Non-African Americans > 60 (> 60)
[2018-09-21] MEDS: Pantoprazole 40 MG VIAL IVP SCH (09:56)
--- NOTE | 2018-09-21 12:36 | General Surgery Progress Note ---
<Too Lopez S - Last Filed: 09/21/18 13:54> Date of Encounter: 09/21/18 Time of Encounter: 09:30 - Assessment and Plan (1) Rectal cancer Current Visit: Yes Status: Acute Patient is POD 4 APR with takedown of splenic flexure and colostomy WBC 5.6 Hgb 8.2, has needed 2 units of RPBCs for low Hgb during this admission Afebrile overnight Urine output 1600 > 650 today Continue reyes for now, plan to remove tomorrow AM JOSE drain with 20 > 10 serosanguineous liquid today Oxycodone and toradol for pain On zosyn Regular diet Daily wound care Zofran and phenergan for nausea Colace BID Protonix for GI prophylaxis Patient up out of bed to chair, consulted PT/OT May plan for discharge on Monday (09/24) if patient continues to progress and drain output continues to decrease Patient will need home health care Subjective Patient reports: no new complaints, feels better, pain is less, tolerating a regular diet, flatus, bowel movement (Ostomy) Narrative: Patient doing well this morning. She states her pain is well controlled. She is tolerating her diet. She denies nausea, vomiting, CP, SOB, fevers/chills. Objective Vital Signs - Last 8 Hours Temp Pulse Resp BP Pulse Ox 09/21/18 10:44 98.3 F 80 17 150/73 97 09/21/18 09:00 97 09/21/18 04:55 98.2 F 80 14 161/82 95 Intake and Output 09/20/18 09/21/18 09/21/18 23:59 07:59 15:59 Intake Total 360 / 360 100 / 100 Output Total 650 / 650 660 / 660 Balance -290 / -290 -560 / -560 Intake: IV Fluids 100 / 100 100 / 100 Zosyn 3.375 GM In 0.9 % Sodium 100 / 100 100 / 100 Chloride (Mini-Bag +) 100 ML @ 25 mls/hr IVPB Q8HR [facility] Rx#: [id number] Oral 260 / 260 0 / 0 Output: Catheter 650 / 650 650 / 650 Wound Drainage 10 / 10 cordell drain Other: Percent of Meal Consumed 50% # Voids 2 # Bowel Movements 0 0 Weight 145.9 kg Patient Weight 09/21/18 23:59 Weight 145.9 kg - General physical appearance well developed - Respiratory normal expansion, normal respiratory effort - Cardiovascular Cardiovascular exam: Present: RRR - Abdomen Abdomen: Present: bowel sounds present, soft, tender (appropriately) Additional Comments: ostomy intact with small amount of soft stool, mucosa non-edematous and pink - Incision Incision: Present: clean and dry, intact - Integumentary no rash - Psychiatric oriented to time, oriented to person, oriented to place - Labs 09/21/18 05:02 09/21/18 05:02 Diabetes panel 09/21/18 Range/Units 05:02 Sodium 142 (136-145) mEq/L Potassium 3.7 (3.5-5.1) mEq/L Chloride 108 H (98-107) mEq/L Carbon Dioxide 27 (23-29) mEq/L BUN 8 (6-20) mg/dL Creatinine 0.64 (0.60-1.20) mg/dL Glucose 112 H (70-105) mg/dL Calcium 8.3 L (8.6-10.3) mg/dL Calcium panel 09/21/18 Range/Units 05:02 Calcium 8.3 L (8.6-10.3) mg/dL Pituitary panel 09/21/18 Range/Units 05:02 Sodium 142 (136-145) mEq/L Potassium 3.7 (3.5-5.1) mEq/L Chloride 108 H (98-107) mEq/L Carbon Dioxide 27 (23-29) mEq/L BUN 8 (6-20) mg/dL Creatinine 0.64 (0.60-1.20) mg/dL Glucose 112 H (70-105) mg/dL Calcium 8.3 L (8.6-10.3) mg/dL Adrenal panel 09/21/18 Range/Units 05:02 Sodium 142 (136-145) mEq/L Potassium 3.7 (3.5-5.1) mEq/L Chloride 108 H (98-107) mEq/L Carbon Dioxide 27 (23-29) mEq/L BUN 8 (6-20) mg/dL Creatinine 0.64 (0.60-1.20) mg/dL Glucose 112 H (70-105) mg/dL Calcium 8.3 L (8.6-10.3) mg/dL Consult Discharge Plan - Plan Referrals: Kathie Will MD [Partnered Physician] - 10/03/18 2:50 pm Deshaun Rivas MD [Primary Care Provider] - <Kathie Will - Last Filed: 09/24/18 12:38> Date of Encounter: 09/21/18 Time of Encounter: 12:35 - Assessment and Plan (1) Rectal cancer Current Visit: Yes Status: Acute continue reg diet colostomy teaching, drain care teaching sliv home meds po pain control ambulate DC planning dc reyes tomorrow am (2) Anemia Current Visit: Yes Status: Acute monitor Hb Qualifiers: Anemia type: other cause Other causes of anemia: other cause, not classified Qualified Code(s): D64.89 - Other specified anemias Subjective Patient reports: no new complaints, still having pain, pain is less, tolerating a regular diet, flatus, bowel movement, afebrile Objective Vital Signs - Last 8 Hours Temp Pulse Resp BP Pulse Ox 09/24/18 12:07 150/82 09/24/18 10:50 98.3 F 63 14 126/69 99 09/24/18 09:37 178/99 09/24/18 09:05 158/81 09/24/18 08:35 161/79 09/24/18 07:55 133/77 09/24/18 07:13 98.4 F 77 15 185/84 100 09/24/18 04:55 98.5 F 77 12 188/82 98 Intake and Output 09/23/18 09/24/18 09/24/18 23:59 07:59 15:59 Intake Total 340 / 340 100 / 100 120 / 120 Output Total 775 / 775 650 / 650 Balance 310 / 310 -675 / -675 -530 / -530 Intake: IV Fluids 100 / 100 100 / 100 Zosyn 3.375 GM In 0.9 % Sodium 100 / 100 100 / 100 Chloride (Mini-Bag +) 100 ML @ 25 mls/hr IVPB Q8HR [facility] Rx#: [id number] Oral 240 / 240 120 / 120 Output: Urine 750 / 750 650 / 650 Wound Drainage 30 / 30 25 / 25 0 / 0 cordell drain 30 / 30 25 / 25 0 / 0 Other: Meal Dinner Breakfast Percent of Meal Consumed 50% 10% # Voids 1 Weight 144.4 kg Patient Weight 09/24/18 23:59 Weight 144.4 kg - General physical appearance well developed, well nourished, no distress, obese - Eyes normal ocular movement - ENT normal mucosa, normocephalic - Neck Neck exam: trachea midline - Respiratory normal expansion, clear to auscultation - Cardiovascular Cardiovascular exam: Present: RRR - Abdomen Abdomen: Present: bowel sounds present, soft, tender. Absent: guarding, rebound - Incision Incision: Present: clean and dry, intact (midline abdomen and perineum) - Integumentary no rash - Neurologic CN 2-12 grossly intact - Musculoskeletal normal posture - Psychiatric oriented to time, oriented to person, oriented to place, speech is normal, memory intact - Labs 09/24/18 06:26 09/21/18 05:02 - Attending Attestation I examined this patient and my medical decision-making was reviewed with the Resident Physician. I agree with the documented findings, disposition and treatment plan as described except to the extent set forth below.
[2018-09-21] MEDS: rOPINIRole 1 MG TABLET PO SCH (19:50)
[2018-09-22] MEDS: *HR* OxyCODONE/APAP 7.5/325 TABLET PO PRN ×4 (02:45→19:42)
[2018-09-22] MEDS: *HR* Metoprolol 5 MG/5 ML VIAL IVP PRN ×2 (02:46→14:35)
[2018-09-22] MEDS: Levothyroxine 25 MCG TABLET PO SCH (05:28)
[2018-09-22] MEDS: *HR* Heparin 5,000 UNIT/ML VIAL SQ SCH ×2 (05:28→18:14)
[2018-09-22] MEDS: Ketorolac 15 MG/ML VIAL IVP SCH ×2 (05:28→11:08)
[2018-09-22] MEDS: Piperacillin/Tazobactam 3.375 GM in 0.9 % Sodium Chloride Mini Bag 100 ML IVPB SCH ×3 (08:28→23:21)
[2018-09-22] MEDS: Pantoprazole 40 MG VIAL IVP SCH (08:28)
[2018-09-22] MEDS ORDERED: Acetaminophen IV 500 MG/50 ML INFUS..BTL IVPB ONE (10:59)
[2018-09-22] MEDS: *HR* HYDROcodone/Acet 5/325 mg TABLET PO PRN (15:59)
--- NOTE | 2018-09-22 16:40 | General Surgery Progress Note ---
Date of Encounter: 09/22/18 Time of Encounter: 07:15 - Assessment and Plan (1) Rectal cancer Current Visit: Yes Status: Acute Patient is POD 5 APR with takedown of splenic flexure and colostomy WBC 5.6 Hgb 8.2, has needed 2 units of RPBCs for low Hgb during this admission Afebrile overnight Urine output 1600 > 650 today Holden removed yesterday JOSE drain with 20 > 10 serosanguineous liquid today Oxycodone, norco, and toradol for pain On zosyn Regular diet Daily wound care Zofran and phenergan for nausea Colace BID Protonix for GI prophylaxis Patient up out of bed to chair, consulted PT/OT May plan for discharge on Monday (09/24) if patient continues to progress and drain output continues to decrease Patient will need home health care Subjective Patient reports: feels better, still having pain, tolerating a regular diet Narrative: 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 She is complaining of pain this morning. She is tolerating her diet and denies nausea and vomiting. She denies CP, SOB, fevers/chills. Objective Vital Signs - Last 8 Hours Temp Pulse Resp BP Pulse Ox 09/22/18 14:28 98.2 F 91 16 169/78 95 09/22/18 10:46 97.7 F 71 14 168/82 97 Intake and Output 09/22/18 09/22/18 09/22/18 07:59 15:59 23:59 Intake Total 200 / 200 150 / 150 Output Total 80 / 80 150 / 150 Balance 120 / 120 0 / 0 Intake: IV Fluids 200 / 200 150 / 150 Ofirmev 1,000 mg/100 ml 500 mg 50 / 50 In 50 ml @ 200 mls/hr IVPB ONCE ONE Rx#:[id number] Zosyn 3.375 GM In 0.9 % Sodium 100 / 100 100 / 100 Chloride (Mini-Bag +) 100 ML @ 25 mls/hr IVPB Q8HR [facility] Rx#: [id number] Oral 0 / 0 Output: Urine 80 / 80 150 / 150 Wound Drainage 0 / 0 0 / 0 cordell drain 0 / 0 0 / 0 Other: # Bowel Movements 0 Weight 145.9 kg Patient Weight 09/22/18 23:59 Weight 145.9 kg - General physical appearance well developed - Respiratory normal expansion, normal respiratory effort - Cardiovascular Cardiovascular exam: Present: RRR - Abdomen Abdomen: Present: bowel sounds present, soft, tender (appropriately) - Incision Incision: Present: clean and dry, intact - Rectum other (JOSE with serosanguineous liquid in bulb, incision clean + dry + intact) - Integumentary no rash - Psychiatric oriented to time, oriented to person, oriented to place - Labs 09/21/18 05:02 09/21/18 05:02 Consult Discharge Plan - Plan Referrals: Kathie Will MD [Partnered Physician] - 10/03/18 2:50 pm Deshaun Rivas MD [Primary Care Provider] -
[2018-09-22] MEDS: Ketorolac 15 MG/ML VIAL IVP PRN ×2 (18:14→23:22)
[2018-09-22] MEDS: rOPINIRole 1 MG TABLET PO SCH (19:42)
[2018-09-22] MEDS: OXYCODONE Oral CONC 10 MG/0.5 ML ORAL.SYG SL PRN (22:12)
[2018-09-23] MEDS: *HR* OxyCODONE/APAP 7.5/325 TABLET PO PRN ×2 (01:51→08:37)
[2018-09-23] MEDS: OXYCODONE Oral CONC 10 MG/0.5 ML ORAL.SYG SL PRN ×5 (04:22→23:14)
[2018-09-23] MEDS: *HR* HYDROcodone/Acet 5/325 mg TABLET PO PRN (06:42)
[2018-09-23] MEDS: *HR* Heparin 5,000 UNIT/ML VIAL SQ SCH ×2 (06:42→17:10)
[2018-09-23] MEDS: Levothyroxine 25 MCG TABLET PO SCH (06:43)
[2018-09-23] MEDS: Piperacillin/Tazobactam 3.375 GM in 0.9 % Sodium Chloride Mini Bag 100 ML IVPB SCH ×2 (08:37→17:10)
[2018-09-23] MEDS: Pantoprazole 40 MG VIAL IVP SCH (08:38)
[2018-09-23 10:28] LABS: Hematocrit 24.5 % (35.3-44.9); Hemoglobin 7.6 g/dL (11.5-15.4)
[2018-09-23] MEDS: Ketorolac 15 MG/ML VIAL IVP PRN ×2 (12:49→21:11)
--- NOTE | 2018-09-23 15:09 | General Surgery Progress Note ---
Date of Encounter: 09/23/18 Time of Encounter: 10:30 - Assessment and Plan (1) Rectal cancer Current Visit: Yes Status: Acute Patient is POD 6 APR with takedown of splenic flexure and colostomy WBC 5.6 Hgb 8.2 > 7.6 today, has needed 2 units of RPBCs for low Hgb during this admission Afebrile overnight Holden has been removed JOSE drain with 20 > 10 serosanguineous liquid today SL oxycodone and IV toradol for pain On zosyn Regular diet Daily wound care Zofran and phenergan for nausea Colace BID Protonix for GI prophylaxis Patient up out of bed to chair, consulted PT/OT May plan for discharge on Monday (09/24) if patient continues to progress and drain output continues to decrease Patient will need home health care Subjective Patient reports: no new complaints, feels better, pain is less, tolerating a regular diet Narrative: Patient doing well this morning. She is tolerating her diet without nausea, vomiting. Pain is well controlled. She denies CP, SOB, fevers/chills. Objective Vital Signs - Last 8 Hours Temp Pulse Resp BP Pulse Ox 09/23/18 14:40 98.0 F 73 16 185/78 97 09/23/18 10:27 98.5 F 70 14 169/88 97 Intake and Output 09/22/18 09/23/18 09/23/18 23:59 07:59 15:59 Intake Total 100 / 100 800 / 800 220 / 220 Output Total 200 / 200 0 / 0 300 / 300 Balance -100 / -100 800 / 800 -80 / -80 Intake: IV Fluids 100 / 100 100 / 100 100 / 100 Zosyn 3.375 GM In 0.9 % Sodium 100 / 100 100 / 100 100 / 100 Chloride (Mini-Bag +) 100 ML @ 25 mls/hr IVPB Q8HR [facility] Rx#: [id number] Oral 0 / 0 700 / 700 120 / 120 Output: Urine 200 / 200 0 / 0 300 / 300 Stool 0 / 0 Wound Drainage 0 / 0 0 / 0 cordell drain 0 / 0 0 / 0 Other: Meal Lunch Percent of Meal Consumed 100% Weight 145.5 kg Patient Weight 09/23/18 23:59 Weight 145.5 kg - General physical appearance well developed - Respiratory normal expansion, normal respiratory effort - Cardiovascular Cardiovascular exam: Present: RRR - Abdomen Abdomen: Present: bowel sounds present, soft, tender (appropriately) Additional Comments: JOSE with serosanguineous liquid in bulb Ostomy with small amount of soft stool, mucosa non-edematous and pink - Incision Incision: Present: clean and dry, intact - Integumentary no rash - Psychiatric oriented to time, oriented to person, oriented to place - Labs 09/23/18 10:15 09/21/18 05:02 Consult Discharge Plan - Plan Referrals: Kathie Will MD [Partnered Physician] - 10/03/18 2:50 pm Deshaun Rivas MD [Primary Care Provider] -
[2018-09-23] MEDS: rOPINIRole 1 MG TABLET PO SCH (21:10)
[2018-09-24] MEDS: Piperacillin/Tazobactam 3.375 GM in 0.9 % Sodium Chloride Mini Bag 100 ML IVPB SCH (01:05)
[2018-09-24] MEDS: OXYCODONE Oral CONC 10 MG/0.5 ML ORAL.SYG SL PRN (04:47)
[2018-09-24] MEDS: Levothyroxine 25 MCG TABLET PO SCH ×3 (06:43→10:56)
[2018-09-24] MEDS: *HR* Heparin 5,000 UNIT/ML VIAL SQ SCH (06:43)
[2018-09-24 06:51] LABS: Hematocrit 25.9 % (35.3-44.9); Hemoglobin 7.9 g/dL (11.5-15.4)
[2018-09-24] MEDS ORDERED: *HR* OxyCODONE/APAP 7.5/325 TABLET PO PRN ×3 (07:45→07:48)
--- NOTE | 2018-09-24 07:50 | Discharge Summary ---
<Lizzy Baires Reid - Last Filed: 09/24/18 13:31> - NOTES TO OUTPATIENT PROVIDER Notes to Outpatient Provider: Dr. Jaret (s): 1) pt stated when she found out she had cancer she "stopped all of her meds except her pain meds and thyroid" She was restarted on Lisinopril (d/t uncontrolled htn) and levot hyroixne (per request) during hospitalization. 2) Pt's stated that he "dumped her perscription out because she wasn't home" (referring to the 240 tablets of oxycodone that were picked up on 09/16/2018. She was provided with a 2 day coverage of pain medications and instructed to follow-up with her provider. Orders not resulted at time of discharge: Pending orders 09/17/18 20:09 Surgical Pathology [PTH] Routine 09/24/18 08:13 Venous Doppler [EV venous imaging LE RT] Stat Date of Encounter: 09/24/18 - Discharge Diagnosis (1) Rectal cancer Status: Acute (2) Morbid obesity with BMI of 50.0-59.9, adult Status: Acute (3) Chronic pain Status: Chronic Qualifiers: Chronic pain type: chronic pain syndrome Qualified Code(s): G89.4 - Chronic pain syndrome (4) Restless leg syndrome, controlled Status: Chronic (5) Anemia Status: Acute Qualifiers: Anemia type: other cause Other causes of anemia: other cause, not classified Qualified Code(s): D64.89 - Other specified anemias General Surgery Exam Initial Vital Signs Temp Pulse Resp BP Pulse Ox 98.5 F 81 18 143/85 94 09/17/18 12:27 09/17/18 12:27 09/17/18 12:27 09/17/18 12:27 09/17/18 12:27 - Hospital Course Hospital course: Of note, pt stated when she found out she had cancer she "stopped all of her meds except her pain meds and thyroid" She was restarted on Lisinopril (d/t uncontrolled htn) and levothyroixne (per request) during hospitalization. 2) OARRS pulled d/t patient's report of high-dose pain medicaitons at home. Noted patient was receiving 240 tables of 10 mg Oxycodone hcl Q10 days. Reviewed with patient these findings and that her last refill was on 09/16 (the day before she came into the hospital) and as such surgery would not plan to send additional pain control home with the patient. Pt's stated that he "dumped her perscription out because she wasn't home" (referring to the 240 tablets of oxycodone that were picked up on 09/16/2018), and she would need something else. We did contact Dr. David to inform him of these findings which were concerning given the amount of narcotics. She is noted to have pain controlled with aprox 10-20 mg of Oxycodone Q4H and She was provided with a 2 day coverage of pain medications and instructed to follow-up with her provider. RLE DVT US is noted negative per preliminary reading - Time Spent with Patient Total time spent providing and/or coordinating discharge services: Greater than 30 minutes Specific discharge activities: Coordinating care with OP providers and OARRS review - Discharge Medications Prescriptions: RX: Lisinopril [Zestril] 10 mg PO DAILY #30 tablet Home Medications: RX: OxyCODONE Immed Rel [Roxicodone 10 MG] 20 - 30 mg PO Q3H PRN 10 Days #240 tab 09/14/18 [Rx] RX: rOPINIRole [Requip] 1 mg PO HS 09/17/18 [History] RX: Lisinopril [Zestril] 10 mg PO DAILY #30 tablet 09/24/18 [Rx] Allergies/Adverse Reactions: Allergy/AdvReac Type Severity Reaction Status Date / Time morphine Allergy Mild Itching Verified 06/06/18 09:56 Erythromycin Base AdvReac Cramping Verified 06/06/18 09:04 of the Muscles Sulfa (Sulfonamide AdvReac Cramping Verified 06/06/18 09:04 Antibiotics) of the Muscles Date of admission: 09/17/18 21:32 Primary care physician: Deshaun Rivas MD Consults: 09/17/18 21:47 Consult to Physical Therapy [CONS] Routine Comment: Evaluate, develop and implement POC Reason for Consult: deconditioning s/p surgery Does patient have active BEDREST order?: No Is patient medically & hemodynamically stable?: Yes Patient assessed for mobility or mobilized this visit?: No Consult to It Data Architect [CONS] Routine Reason for SW Consult: will need home care for new colostomy Consult to Wound Care [CONS] Routine Reason for Consult: new colostomy Time Notified: 20:15 Call Completed: No OT [Consult to Occupational Therapy] [CONS] Routine Comment: Evaluate, develop and implement POC Reason for Consult: deconditioning Does patient have active BEDREST order?: No Is patient medically & hemodynamically stable?: Yes Patient assessed for mobility or mobilized this visit?: No Labs on day of discharge: Labs from last 24 hours 09/24/18 06:26 Hgb 7.9 L Hct 25.9 L - Patient Status Disposition: Home, Self-Care Condition: Fair Overall status at discharge: patient is progressing back to baseline - Discharge Instructions Instructions: Colostomy Care (DC), Pain Management After Surgery (DC), Weight Management (DC), Gas and Bloating (GEN), Colostomy Irrigation (GEN) Follow Up With: Kathie Will MD [Partnered Physician] - 10/03/18 2:50 pm Colt David MD [Partnered Physician] - 09/26/18 3:30 pm (1-2 days after d/c to discuss pain meds) Sunshine Contreras CNP [Advanced Practice Nurse] - 09/28/18 9:45 am - Diet and Activity Activity: increase activity as tolerated Diet: advance to your usual diet <Kathie Will - Last Filed: 09/24/18 16:53> Orders not resulted at time of discharge: Pending orders 09/17/18 20:09 Surgical Pathology [PTH] Routine Date of Encounter: 09/24/18 Time of Encounter: 07:50 - Discharge Diagnosis (1) Rectal cancer Priority: Primary Status: Acute (2) Anemia Priority: Secondary Status: Acute Qualifiers: Anemia type: other cause Other causes of anemia: other cause, not classified Qualified Code(s): D64.89 - Other specified anemias General Surgery Exam Initial Vital Signs Temp Pulse Resp BP Pulse Ox 98.5 F 81 18 143/85 94 09/17/18 12:27 09/17/18 12:27 09/17/18 12:27 09/17/18 12:27 09/17/18 12:27 - General physical appearance well developed, well nourished, no distress, moderate pain, obese - Eyes PERRL, normal ocular movement - ENT normal mucosa - Neck trachea midline - Respiratory normal expansion, normal respiratory effort, clear to auscultation - Cardiovascular Cardiovascular exam: Present: RRR - Abdomen Abdomen general surgery: Present: bowel sounds present, soft, tender (appropriate post op tenderness) - Incision Incision: Present: clean and dry, intact - Genitourinary Present: other (perineum incision C/D/I) - Integumentary Integumentary general surgery: Present: warm and dry, other (colostomy - pink, viable functioning) - Neurologic Present: CN 2-12 grossly intact - Musculoskeletal Present: normal posture - Psychiatric Psychiatric general surgery: Present: A&Ox3 - Hospital Course Hospital course: Ms. Franco is a 47 year old female who was admitted for surgery and underwent and uncomplicated LAR, takedown splenic flexure, repair vaginal wall. Postoperatively she has done very well. Initially pain was controlled with DIRECTOR ELECTRONICS dilaudid and epidural. After those were DC'd pain was controlled by po percocet and toradol. Catheter was removed on POD 5 and patient has been able to urinate without issues. She is up ambulating well. She has received colostomy education. She is discharged home in stable condition. She will have home care for colostomy care. - Time Spent with Patient Total time spent providing and/or coordinating discharge services: Date of admission: 09/17/18 21:32 Primary care physician: Deshaun Rivas MD Consults: 09/17/18 21:47 Consult to Physical Therapy [CONS] Routine Comment: Evaluate, develop and implement POC Reason for Consult: deconditioning s/p surgery Does patient have active BEDREST order?: No Is patient medically & hemodynamically stable?: Yes Patient assessed for mobility or mobilized this visit?: No Consult to It Data Architect [CONS] Routine Reason for SW Consult: will need home care for new colostomy Consult to Wound Care [CONS] Routine Reason for Consult: new colostomy Time Notified: 20:15 Call Completed: No OT [Consult to Occupational Therapy] [CONS] Routine Comment: Evaluate, develop and implement POC Reason for Consult: deconditioning Does patient have active BEDREST order?: No Is patient medically & hemodynamically stable?: Yes Patient assessed for mobility or mobilized this visit?: No Discharging clinician: Kathie Will Anticipated date of discharge: 09/24/18 Labs on day of discharge: Labs from last 24 hours 09/24/18 09/23/18 06:26 10:15 Hgb 7.9 L 7.6 L Hct 25.9 L 24.5 L - Patient Status Overall status at discharge: patient is progressing back to baseline - Attending Attestation I have personally performed a face to face evaluation on this patient. I have reviewed and agree with the care plan. History and Exam by me shows:
[2018-09-24] MEDS: *HR* Metoprolol 5 MG/5 ML VIAL IVP PRN (07:53)
[2018-09-24 13:49] VITALS: BP 134/79
--- NOTE | 2018-09-24 14:13 | Physician Discharge Referral ---
Home Health/Hosp Referral Info Transfer to: Home Health Attending Provider: Dr. Kathie Will Provider in Charge Post Discharge: Other (Dr. Kathie Will) - Diagnosis (1) Rectal cancer Priority: Primary Status: Acute (2) Morbid obesity with BMI of 50.0-59.9, adult Priority: Secondary Status: Acute (3) Chronic pain Priority: Secondary Status: Chronic (4) Restless leg syndrome, controlled Priority: Secondary Status: Chronic (5) Anemia Priority: Secondary Status: Acute - Respiratory Orders Smoking Cessation: Smoking cessation has been advised. For more information, call the [place] Tobacco Quit Line at 0-018-ANYW-NOW. - Dressing/Wound Care Site: New Ostomy Care Ostomy supplies RX included in DC packet - Diet/Nutrition Diet/Nutrition Orders: Regular - Activity Activity Orders: Up ad felecia - Services Needed Following services are medically necessary services: Skilled Nursing Care Orders: New ostomy care. May transition to patient as appropriate. - Transfer Medications Prescriptions: Lisinopril [Zestril] 10 mg PO DAILY #30 tablet Home Medications: OxyCODONE Immed Rel [Roxicodone 10 MG] 20 - 30 mg PO Q3H PRN 10 Days #240 tab 09/14/18 [Rx] rOPINIRole [Requip] 1 mg PO HS 09/17/18 [History] Lisinopril [Zestril] 10 mg PO DAILY #30 tablet 09/24/18 [Rx] Allergies/Adverse Reactions: Allergy/AdvReac Type Severity Reaction Status Date / Time morphine Allergy Mild Itching Verified 06/06/18 09:56 Erythromycin Base AdvReac Cramping Verified 06/06/18 09:04 of the Muscles Sulfa (Sulfonamide AdvReac Cramping Verified 06/06/18 09:04 Antibiotics) of the Muscles Certification: Further, I certify that my clinical findings support that this patient is homebound (i.e. absences from home require considerable and taxing effort and are for medical reasons or congregational services or infrequently or short duration when for other reasons) because: Homebound Reason: Patient requires assistance of a person or device to safely leave home, Leaving home requires considerable and taxing effort due to condition Attestation: My signature below is to certify that this patient is under my care and that I, or nurse practitioner, or a physician's acute care nursing assistant working with me, has a [id number] encounter with this patient.
== END 2018-09-24 14:55 | disposition home or self-care (01) | DRG 231 ==
LOC: SAMDAY 11:39 → 3ANU 21:32
PROVIDERS: ADMIT Surgery; ATTEND Surgery